=== PATIENT | male | born 1950 | race Caucasian/White ===

== ENCOUNTER 2022-01-27 10:52 | Day surgery (SDC) | payer MEDICARE ==
[~2022-01-27] VITALS: Ht 180.3 cm; Wt 112.5 kg
[2022-01-27] MEDS ORDERED: normal saline 1000ml 1,000 ML IV PRN (11:15)
[2022-01-27 11:20] VITALS: BP 92/58
[2022-01-27] MEDS ORDERED: LISI10TA27 PO (11:35)
[2022-01-27] MEDS ORDERED: ROSU40TA22 PO (11:35)
[2022-01-27] MEDS ORDERED: IBUP-1986 PO (11:35)
[2022-01-27] MEDS ORDERED: CARV6.253 PO (11:35)
[2022-01-27] MEDS ORDERED: TRIA1TAB3 PO (11:35)
[2022-01-27] MEDS ORDERED: MSC30T PO (11:35)
[2022-01-27] MEDS ORDERED: FAMO40TA7 PO (11:35)
[2022-01-27] MEDS ORDERED: heparin sodium, porcine/PF 100unit/ml 5ML syringe ONE (11:48)
[2022-01-27] MEDS ORDERED: midazolam 1 mg/ML 2ml injection ONE (11:49)
[2022-01-27] MEDS ORDERED: LIDOcaine 1% 30ml preserv. free vial ONE (11:49)
[2022-01-27] MEDS ORDERED: FENTANYL CITRATE/PF 50 MCG/1 ML VIAL ONE ×3 (11:49→12:47)
[2022-01-27 12:00] LABS: BASOPHILS % (AUTO) 0.5 % (0-1); EOSINOPHILS # (AUTO) 0.2 X10'3 (0-0.9); EOSINOPHILS % (AUTO) 2.6 % (0-6); HEMATOCRIT 49.1 % (42.0-52.0); HEMOGLOBIN 16.5 g/dl (14.0-17.9); LYMPHOCYTES # (AUTO) 0.7 X10'3 (1.1-4.8); LYMPHOCYTES % (AUTO) 8.2 % (21-51); MEAN CORPUSCULAR HEMOGLOBIN 32.2 PG (27.0-31.0); MEAN CORPUSCULAR HGB CONC 33.6 g/dL (33.0-36.5); MEAN CORPUSCULAR VOLUME 95.7 FL (78-98); MEAN PLATELET VOLUME 7.9 FL (7.4-10.4); MONOCYTES # (AUTO) 0.7 X10'3 (0-0.9); MONOCYTES % (AUTO) 8.1 % (2-12); NEUTROPHILS # (AUTO) 6.8 X10'3 (1.8-7.7); NEUTROPHILS % (AUTO) 80.6 % (42-75); PLATELET COUNT 191 X10'3 (140-440); RED BLOOD COUNT 5.13 X10'6 (4.70-6.10); WHITE BLOOD COUNT 8.4 X10'3 (4.5-11.0)
[2022-01-27 13:05] VITALS: BP 105/74
[2022-01-27 13:20] VITALS: BP 108/67
[2022-01-27 13:35] VITALS: BP 111/69
[2022-01-27 13:50] VITALS: BP 105/64
== END 2022-01-27 14:15 | disposition home or self-care (01) ==
LOC: SSTAY O 10:52
PROVIDERS: ATTEND Radiology Vascular & Interventional Radiology
DX: C34.90 Malignant neoplasm of unspecified part of unspecified bronchus or lung (principal); I10 Essential (primary) hypertension; E78.00 Pure hypercholesterolemia, unspecified; Z95.4 Presence of other heart-valve replacement; Z88.6 Allergy status to analgesic agent; Z79.899 Other long term (current) drug therapy; Z98.890 Other specified postprocedural states
CPT/HCPCS: 36415; 36561; 76937; 77001; 85025; 85610; C1769; C1788; C1894; J1642; J2250; J3010; J7030; 99152; 99153; J3490